=== PATIENT | female | born 1970 | race Caucasian/White ===

== ENCOUNTER 2017-09-11 14:49 | Emergency (ER) | payer BC ==
[2017-09-11 15:25] VITALS: BP 147/90
[2017-09-11] MEDS ORDERED: ONDANSETRON 4 MG TAB.RAPDIS PO ONE (16:43)
[2017-09-11] MEDS ORDERED: KETOROLAC TROMETHAMINE 60 MG/2 ML SDV IM ONE (16:43)
--- NOTE | 2017-09-11 16:43 | ER Document Report ---
ED Medical Screen (RME) - General Chief Complaint: Possible Kidney Stone Stated Complaint: BACK PAIN Time Seen by Provider: 09/11/17 16:37 Mode of Arrival: Ambulatory Information source: Patient Notes: 46 yo nonsmoker, migraines, female c/o intermittent left flank pain while sitting in the car since wednesday, wednesday, today at 13:30. Radiates into the left lower quadrant, Hx kidney stone, removal-stents. ? blood in urine the other day, wednesday. Hx endometrial ablation with mild periods that she had last week, spouse had vasectomy. Feels bloated all over abdomen now. Normal BM 2 days ago. Here visiting daughter. Crying now frustrated due to pain, 4/5 with nausea. Mild lumbar muscle tender, soft abdomen, non tender. Vandervoort feverish, but not temperature. No hx diverticulitis, crohns or colitis. , - Related Data Allergies/Adverse Reactions: avocado Allergy (Verified 09/11/17 14:51) codeine Allergy (Verified 09/11/17 14:51) guanfacine Allergy (Verified 09/11/17 14:51) Physical Exam - Vital signs Vitals: Temp Pulse Resp BP Pulse Ox 97.8 F 78 16 147/90 H 100 09/11/17 15:24 09/11/17 15:24 09/11/17 15:24 09/11/17 15:24 09/11/17 15:24 Course - Vital Signs Vital signs: Temp Pulse Resp BP Pulse Ox 97.8 F 78 16 147/90 H 100 09/11/17 15:24 09/11/17 15:24 09/11/17 15:24 09/11/17 15:24 09/11/17 15:24
[2017-09-11 17:12] LABS: APPEARANCE,URINE SLIGHTLY-CLOUDY; BILIRUBIN,URINE NEGATIVE (NEGATIVE); COLOR,URINE YELLOW; GLUCOSE, URINE NEGATIVE (NEGATIVE); KETONES,URINE TRACE mg/dL (NEGATIVE); LEUKOCYTE ESTERASE,URINE MODERATE (NEGATIVE); NITRITE,URINE NEGATIVE (NEGATIVE); PROTEIN,URINE NEGATIVE (NEGATIVE); URINE SPECIFIC GRAVITY 1.024; UROBILINOGEN,URINE NEGATIVE mg/dL (<2.0)
--- NOTE | 2017-09-11 17:52 | RADIOLOGY REPORT (SQ) ---
EXAM DESCRIPTION: CT LTD RENAL STONE PROTOCOL ON COMPLETED DATE/TIME: 09/11/2017 5:12 pm REASON FOR STUDY: left flank pain COMPARISON: None. TECHNIQUE: CT scan of the abdomen and pelvis performed without intravenous or oral contrast. Images reviewed with lung, soft tissue, and bone windows. Reconstructed coronal and sagittal MPR images revi ewed. All images stored on PACS. All CT scanners at this facility use dose modulation, iterative reconstruction, and/or weight based d osing when appropriate to reduce radiation dose to as low as reasonably achievable (ALARA). [facility]: Dose Right [facility]: CareDose [facility]: Dose Right [facility]: Teradose 4D [facility]: Smart Rhytec RADIATION DOSE: CT Rad equipment meets quality standard of care and radiation dose reduction techniq ues were employed. CTDIvol: 14.4 mGy. DLP: 812 mGy-cm.mGy. LIMITATIONS: None. FINDINGS: LOWER CHEST: No significant findings. No nodules or infiltrates. NON-CONTRASTED LIVER, SPLEEN, ADRENALS: Evaluation limited by lack of IV contrast. No identified sign ificant masses. PANCREAS: No masses. No peripancreatic inflammatory changes. GALLBLADDER: Surgically absent. RIGHT KIDNEY AND URETER: No suspicious masses. Assessment limited by lack of IV contrast. No signif icant calcifications. No hydronephrosis or hydroureter. LEFT KIDNEY AND URETER: No suspicious masses. Assessment limited by lack of IV contrast. 9.1 x 3.6 x 4.4 mm distal ureterolith with associated upstream ureterectasis and hydronephrosis. AORTA AND RETROPERITONEUM: No aneurysm. No retroperitoneal masses or adenopathy. BOWEL AND PERITONEAL CAVITY: No obvious masses or inflammatory changes. No free fluid. APPENDIX: Normal. PELVIS, BLADDER, AND ABDOMINAL WALL:No abnormal masses. No free fluid. Bladder normal. BONES: No significant findings. OTHER: No other significant finding. IMPRESSION: Partially obstructing 9.1 x 3.6 x 4.4 mm left distal ureterolith. COMMENT: Quality ID # [id number]: Final reports with documentation of one or more dose reduction techniques (e.g., Automated exposure control, adjustment of the mA and/or kV according to patient size, use of iterative reconstruction technique) TECHNICAL DOCUMENTATION: JOB ID: [id number]- All Rights Reserved
[2017-09-11] MEDS ORDERED: NORMAL SALINE 1000 ML 1,000 ML IV ONE (19:19)
--- NOTE | 2017-09-11 19:21 | ER Document Report ---
ED GI/ - General Chief Complaint: Possible Kidney Stone Stated Complaint: BACK PAIN Time Seen by Provider: 09/11/17 16:37 Mode of Arrival: Ambulatory Notes: Patient is a 46-year-old female that comes emergency department for chief complaint of left flank pain, symptoms started approximately 4 days ago, pain radiates around to her left lower abdomen. She reports nausea but no vomiting. Past medical history of kidney stones with 2 separate kidney stone removals via stents. She reports normal bowel movements, denies fever, denies vaginal discharge or bleeding. She is out of town visiting her daughter, she is from [place]. Only other past medical history reported migraines, depression. - Related Data Allergies/Adverse Reactions: avocado Allergy (Verified 09/11/17 14:51) codeine Allergy (Verified 09/11/17 14:51) guanfacine Allergy (Verified 09/11/17 14:51) Past Medical History - General Information source: Patient - Social History Smoking Status: Never Smoker Chew tobacco use (# tins/day): No Frequency of alcohol use: Occasional Drug Abuse: None Lives with: Family Family History: Reviewed & Not Pertinent Patient has suicidal ideation: No Patient has homicidal ideation: No Neurological Medical History: Reports: Hx Migraine Renal/ Medical History: Reports: Hx Kidney Stones. Denies: Hx Peritoneal Dialysis Past Surgical History: Reports: Hx Cholecystectomy, Hx Urinary Tract Surgery - stents for kidney stones Review of Systems - Review of Systems Constitutional: No symptoms reported EENT: No symptoms reported Cardiovascular: No symptoms reported Respiratory: No symptoms reported Gastrointestinal: See HPI Genitourinary: See HPI Female Genitourinary: See HPI Musculoskeletal: No symptoms reported Skin: No symptoms reported Hematologic/Lymphatic: No symptoms reported Neurological/Psychological: No symptoms reported Physical Exam - Vital signs Vitals: Temp Pulse Resp BP Pulse Ox 97.8 F 78 16 147/90 H 100 09/11/17 15:24 09/11/17 15:24 09/11/17 15:24 09/11/17 15:24 09/11/17 15:24 Interpretation: Normal - General General appearance: Appears well In distress: None - HEENT Head: Normocephalic, Atraumatic Eyes: Normal Pupils: PERRL - Respiratory Respiratory status: No respiratory distress Chest status: Nontender Breath sounds: Normal Chest palpation: Normal - Cardiovascular Rhythm: Regular Heart sounds: Normal auscultation Murmur: No - Abdominal Inspection: Normal Distension: No distension Bowel sounds: Normal Tenderness: Tender - Mild mid to lower left quadrant tenderness, remaining abdomen is benign, no guarding, rigidity or, or rebound tenderness Organomegaly: No organomegaly - Back Back: Normal, Nontender. No: CVA tenderness, Vertebra tenderness - Extremities General upper extremity: Normal inspection, Nontender, Normal color, Normal ROM , Normal temperature General lower extremity: Normal inspection, Nontender, Normal color, Normal ROM , Normal temperature, Normal weight bearing. No: Gianna's sign - Neurological Neuro grossly intact: Yes Cognition: Normal Orientation: AAOx4 Painter Coma Scale Eye Opening: Spontaneous Painter Coma Scale Verbal: Oriented Mickey Coma Scale Motor: Obeys Commands Painter Coma Scale Total: 15 Speech: Normal Motor strength normal: LUE, RUE, LLE, RLE Sensory: Normal - Psychological Associated symptoms: Normal affect, Normal mood - Skin Skin Temperature: Warm Skin Moisture: Dry Skin Color: Normal Course - Re-evaluation Re-evalutation: CT showing left-sided ureterolithiasis with partial obstruction in the distal ureter. This is large at 9 mm x 4 mm. Unlikely to pass. Urine shows evidence of developing infection with 1+ bacteria, moderate leukocyte esterase, white blood cells. Culture has already been placed. Obtain CBC and BMP, give IV fluids. CBC and BMP are unremarkable. Patient's vital signs unremarkable including no fever. Patient's pain is well controlled with just the Toradol and Zofran that she received earlier. She is actually quite well-appearing and alert although she became tearful upon her diagnosis. Patient is visiting from out of state. I called [facility], spoke with Dr. Robledo, he recommends that patient be seen in the office on Wednesday or Wednesday, be provided with pain medication, nausea medication, antibiotics, Flomax, and recommends that the urine sample be performed via catheterization. Discussed with patient, she refuses the catheterized urine sample but is very agreeable with the medications and follow-up plans. Discussed return precautions in detail with patient and family. They state understanding and agreement. - Vital Signs Vital signs: Temp Pulse Resp BP Pulse Ox 97.8 F 78 20 147/90 H 100 09/11/17 15:24 09/11/17 15:24 09/11/17 16:37 01/20/18 15:24 09/11/17 15:24 - Laboratory Result Diagrams: 09/11/17 20:13 09/11/17 20:13 Laboratory results interpreted by me: 09/11/17 16:50 Urine Ketones TRACE H Ur Leukocyte Esterase MODERATE H Discharge - Discharge Clinical Impression: Flank pain, Ureterolithiasis Condition: Stable Disposition: HOME, SELF-CARE Additional Instructions: Your imaging shows a 9 x 4 mm stone in the left ureter. This will likely not pass and will need to be removed. I spoke with urology from [facility], Dr. Robledo, please call the number below on Wednesday morning for a close follow-up. Take the Keflex antibiotics to prevent developing infection, take morphine if needed for pain, take Zofran if needed for nausea, take Flomax as prescribed. Return if you worsen in anyway including severe uncontrolled pain, uncontrolled vomiting, fever 100.4 or greater, or any other concerning symptoms. [facility] Urologist in [place], [place] Address: [address] [place] [address] [facility] in [place], [place] Address: [address] [place], [place] [id number] Prescriptions: Morphine Sulfate [Morphine Ir 15 Mg Tablet] 15 mg PO Q4HP PRN #15 tablet PRN Reason: Cephalexin Monohydrate [Keflex 500 mg Capsule] 500 mg PO QID #28 capsule Ondansetron [Zofran Odt 4 mg Tablet] 1 - 2 tab PO Q4H PRN #15 tab.rapdis PRN Reason: For Nausea/Vomiting Tamsulosin HCl [Flomax 0.4 mg Cap.sr] 0.4 mg PO DAILY #7 cap.sr.24h
[2017-09-11 20:38] LABS: ABSOLUTE EOSINOPHILS # (AUTO) 0.1 10^3/uL (0.0-0.6); ABSOLUTE LYMPHOCYTES (AUTO) 1.6 10^3/uL (0.5-4.7); ABSOLUTE MONOCYTES (AUTO) 0.7 10^3/uL (0.1-1.4); BASOPHILS % (AUTO) 0.3 % (0-2); EOSINOPHILS % (AUTO) 0.8 % (0-6); HEMATOCRIT 41.5 % (36.0-47.0); HEMOGLOBIN 14.6 g/dL (12.0-15.5); LYMPHOCYTES % (AUTO) 15.1 % (13-45); MEAN CORPUSCULAR HEMOGLOBIN 32.6 pg (27.0-33.4); MEAN CORPUSCULAR HGB CONC 35.1 g/dL (32.0-36.0); MEAN CORPUSCULAR VOLUME 93 fl (80-97); MONOCYTES % (AUTO) 6.6 % (3-13); PLATELET COUNT 274 10^3/uL (150-450); RED BLOOD COUNT 4.46 10^6/uL (3.72-5.28); RED CELL DISTRIBUTION WIDTH 12.6 % (11.5-14.0); SEGMENTED NEUTROPHILS % (AUTO) 77.2 % (42-78); TOTAL CELLS COUNTED % (AUTO) 100 %; WHITE BLOOD COUNT 10.3 10^3/uL (4.0-10.5)
[2017-09-11 21:08] LABS: ANION GAP 11 (5-19); BLOOD UREA NITROGEN 18 mg/dL (7-20); CALCIUM 10.1 mg/dL (8.4-10.2); CARBON DIOXIDE 25 mmol/L (22-30); CHLORIDE 102 mmol/L (98-107); GLUCOSE 80 mg/dL (75-110); SODIUM 137.7 mmol/L (137-145)
[2017-09-11] MEDS ORDERED: CEFTRIAXONE 1 GM/D5W RTU 1 GM/50 ML RTUPB IV ONE (21:20)
[2017-09-11] MEDS ORDERED: CEFTRIAXONE INJ 1000 MG VIAL IV ONE (21:47)
[2017-09-11] MEDS ORDERED: HYDROCODONE/ACETAMINOPHEN 5-325 MG (6 TAB/ER DISP) PO PRN (23:32)
[2017-09-11] MEDS ORDERED: ONDANSETRON ODT 4 MG TAB (6 TAB/ER DISP) PO PRN (23:33)
== END 2017-09-11 23:20 | disposition home or self-care (01) ==
LOC: ER 14:49
DX: N20.1 Calculus of ureter (principal); M54.9 Dorsalgia, unspecified; R10.32 Left lower quadrant pain
CPT/HCPCS: 99284; 36415; 87086; 85025; 81025; 80048; 81001; 76380; J1885; S0119; J0696; J7030